=== PATIENT | male | born 1975 | race Caucasian/White ===

== ENCOUNTER → 2021-07-06 11:03 | Outpatient (CLI) | payer OTHER, SELFPAY ==
--- NOTE | 2021-07-06 | DI.MRI.S_ITS ---
PROCEDURE: MR LUMBAR SPINE WO CON INDICATIONS: Radiculopathy, lumbar region TECHNIQUE: Noncontrast sagittal T1 spin echo and T2 fast echo, sagittal STIR, axial T1 and T2 fast spin echo through the lumbar spine. In cases with scoliosis, additional coronal T2 fast spin echo may be performed. COMPARISON: None. FINDINGS: Image quality: Excellent. Alignment and Curvature: There is normal bony alignment. Bone Marrow: Marrow is of normal overall signal. No acute vertebral body compression fractures. Spinal Cord: Conus medullaris terminates at the L1 level. Visualized cord demonstrates normal signal and size. Paraspinous Soft Tissues: No paravertebral masses. T12-L1: Normal appearance. L1-L2: Normal appearance. L2-L3: Normal appearance. L3-L4: Disc height is preserved. Circumferential disc bulge present mild central stenosis. No foraminal stenosis. L4-L5: Moderate disc space narrowing present. Large left subarticular disc protrusion fills the left lateral recess and results in severe central stenosis. There is moderate right and severe left foraminal stenosis. L5-S1: Disc height is preserved. No central or foraminal stenosis. IMPRESSION: 1. Large L3-4 left subarticular disc protrusion fills the left lateral recess results in severe central and left foraminal stenosis. Approved by: Omkar Long M.D. on 07/07/2021 at 9:09
== END ==
PROVIDERS: PCP Family Medicine; Referring Provider Family Medicine; Visit Provider Family Medicine
DX: M51.16 Intervertebral disc disorders with radiculopathy, lumbar region (principal); M48.061 Spinal stenosis, lumbar region without neurogenic claudication
CPT/HCPCS: 72148

== ENCOUNTER → 2021-09-30 10:16 | Outpatient (CLI) | payer OTHER, SELFPAY ==
--- NOTE | 2021-09-30 10:18 | DI.RAD.S_ITS ---
PROCEDURE: XR LUMBAR SPINE MIN 4V INDICATIONS: BACK PAIN TECHNIQUE: 5 views of the lumbar spine were acquired, including bilateral oblique views. COMPARISON: None. FINDINGS: Bones: 5 nonrib-bearing vertebrae are present. There is normal bony alignment. No vertebral body compression fractures. No suspicious bony lesions. Mild degenerative disc changes noted throughout the lumbar spine. Mild L4-L5 and L5-S1 facet hypertrophy. Soft tissues: Overlying bowel gas pattern is normal. No suspicious soft tissue calcifications. Oblique images: No pars defects. IMPRESSION: 1. Multilevel degenerative disc disease. 2. Multilevel facet arthropathy. 3. No fracture. No acute osseous lesion. If symptoms and/or clinical suspicion for pathology persists, evaluation with MRI should be considered for further assessment. Dictated by: Cora Casiano MD, PhD on 09/30/2021 at 14:53 Approved by: Cora Casiano MD, PhD on 09/30/2021 at 14:54
== END ==
PROVIDERS: PCP Family Medicine; Referring Provider Physical Medicine & Rehabilitation; Visit Provider Physical Medicine & Rehabilitation
DX: M51.36 Other intervertebral disc degeneration, lumbar region (principal); M51.37 Other intervertebral disc degeneration, lumbosacral region; M47.816 Spondylosis without myelopathy or radiculopathy, lumbar region; M47.817 Spondylosis without myelopathy or radiculopathy, lumbosacral region; M51.26 Other intervertebral disc displacement, lumbar region; M54.9 Dorsalgia, unspecified
CPT/HCPCS: 72110; 99214

== ENCOUNTER → 2021-10-21 11:43 | Outpatient (CLI) | payer OTHER, SELFPAY ==
[2021-10-21 13:09] LABS: COVID19 -Nasal RAPID Negative (Negative)
== END ==
PROVIDERS: PCP Family Medicine; Visit Provider Physical Medicine & Rehabilitation
DX: Z20.822 Contact with and (suspected) exposure to COVID-19 (principal)
CPT/HCPCS: 87635; C9803

== ENCOUNTER 2021-10-22 07:59 | Outpatient (CLI) | payer OTHER, SELFPAY ==
[2021-10-22] VITALS (8 sets, daily range): BP systolic 134–149; BP diastolic 91–112; PULSE 74–91; RESP 16–27; TEMP 36.4; O2SAT 97–100
--- NOTE | 2021-10-22 08:01 | DI.RAD.S_ITS ---
PROCEDURE: PAIN L/S TRANSFORAM INJECT CHECO COMPARISON: [facility], CR, XR LUMBAR SPINE MIN 4V, 09/30/2021, 10:43. INDICATIONS: SPONDYLOSIS FINDINGS: Fluoroscopic spot filming was performed to verify placement of spinal needles on both sides at the L4-L5 level, as labeled on the films. Appropriate location of the needle tips was confirmed by injection of iodinated contrast. IMPRESSION: Intraprocedural examination demonstrating appropriate positions of the needles. Dictated by: Freddy Zhao M.D. on 10/22/2021 at 10:33 Approved by: Freddy Zhao M.D. on 10/22/2021 at 10:33
[2021-10-22] MEDS: MIDAZOLAM 2 MG/2 ML VIAL IV (09:04)
[2021-10-22] MEDS: BUPIVACAINE 0.25% (PF) VIAL 2 ML INJ (09:09)
[2021-10-22] MEDS: IOPAMIDOL 15 ML VIAL 3 ML INJ (09:09)
[2021-10-22] MEDS: BETAMETHASONE 30 MG/5 ML MDV 12 MG INJ (09:09)
[2021-10-22] MEDS: DEXAMETHASONE 10 MG/ML VIAL 20 MG INJ (09:10)
--- NOTE | 2021-10-22 09:23 | PM.PROC.IR.1 ---
Date/Time/Diagnoses Date of procedure: 10/22/21 Time of procedure: 09:23 Pre-procedure diagnosis: 1. FORAMINAL STENOSIS WITH LE SYMPTOMS Procedure Notes Procedure: 1. FLUOROSCOPICALLY GUIDED CONTRAST CONTROLLED TRANSFORAMINAL EPIDURAL STEROID INJECTION - BILATERAL L4/5 TFESI Indications: Keagan is referred by Dr. Schwartz for treatment of Foraminal Stenosis with bilateral LE Symptoms Physician: Derrick Fu Total Fluoroscopy time (seconds): 16 Total sedation minutes: 17 Complications: none Procedure in detail & Post-procedure care: FINDINGS Foraminal Nerve Root Compression secondary to disc disease and facet hypertrophy DESCRIPTION OF PROCEDURE Following review of allergy and review of potential side effects and complications, including, but not necessarily limited to, infection, allergic reaction, local tissue breakdown, stroke, temporary or permanent nerve injury, paralysis, and possible , the patient indicated that the patient understood and agreed to proceed. An informed consent document was signed by the patient, witnessed by a nurse, and placed in the patient's chart. Additionally, other treatment options including medications, modalities, and physical therapy were reviewed with the patient. After review of previous anaesthesic history and IV conscious sedation the patient was deemed safe to proceed with today?s procedure with IV conscious sedation as ASA class II designation. Safety time-out was performed to confirm patient ID, procedure to be performed and site of procedure. IV sedation was accomplished with a combination of 2mg of Versed was administered by the RN after DO order, titrated to patient comfort during the course of the procedure while the patient remained responsive to all verbal commands In the prone position following sterile prep and drape of the lumbar region, the right L4/5 posterior neuroforamen was identified fluoroscopically. The skin was anesthetized via a 25-gauge 1.5-inch needle with 1% lidocaine solution. At this point, a 25-gauge 3.5-inch spinal needle was atraumatically introduced and advanced under fluoroscopic guidance through the posterior right L4/5 neuroforamen to approximately the anterior aspect of the canal. Depth was confirmed on lateral view. Following negative aspiration, injection of approximately 1.5cc of Isovue 200 under live fluoroscopy in the AP view confirmed excellent flow along the nerve root, into the epidural space without vascular or intrathecal uptake observed Radiological data, including multiple fluoroscopic views of the lumbosacral spine, reveal a spinal needle at the right L4/5 posterior neuroforamen. Subsequent views show flow of contrast material flowing superiorly and inferiorly along the nerve root confirming epidural flow. Subsequently, a test dose of 1.5cc of 1% lidocaine solution was administered and patient was observed for two minutes for signs or symptoms of complications, including abdominal pain, shortness of breath, bilateral upper or lower extremity weakness, nausea and vomiting, prior to steroid injection. At this point, a total of 3cc or 20mg of dexamethasone and 6mg betamethasone was injected without incident. Attention was then refocused to the left L4/5 level where the identical procedure was replicated. The procedure tolerated the procedure well without signs or symptoms of complications prior to transfer to the recovery area continued monitoring without incident. The patient was then transferred to the recovery area where they were observed for an appropriate time after the injection. The patient reported a VAS score of 7 prior to the procedure and a post-procedure VAS of 0. POST OP INSTRUCTIONS The patient was provided a Pain Log to continue to record their response to the target-specific procedure prior to follow-up visit with their referring physician. Additionally, specific post-injection care instructions and a contact number to our office were provided if concerns arise regarding possible complications associated with the procedure are suspected.
== END 2021-10-22 09:40 | disposition home or self-care (01) ==
PROVIDERS: PCP Family Medicine; Referring Provider Physical Medicine & Rehabilitation; Visit Provider Physical Medicine & Rehabilitation
DX: M48.061 Spinal stenosis, lumbar region without neurogenic claudication (principal); M51.16 Intervertebral disc disorders with radiculopathy, lumbar region
CPT/HCPCS: 64483; 99152; J0702; J1100; J2250

== ENCOUNTER 2022-08-14 10:30 | Outpatient (CLI) | payer OTHER, SELFPAY ==
[2022-08-14] VITALS (7 sets, daily range): BP systolic 146–171; BP diastolic 98–110; PULSE 69–83; RESP 12–20; TEMP 36.4; O2SAT 98–99
--- NOTE | 2022-08-14 10:31 | DI.RAD.S_ITS ---
PROCEDURE: PAIN L INTERLAMINAR/CAUDAL INJ INDICATIONS: SPONDYLOSIS COMPARISON: None. FINDINGS: Fluoroscopic spot filming was performed to verify placement of spinal needles at the L4-5 level, as labeled on the films. Appropriate location of the needle tip was confirmed by injection of iodinated contrast. IMPRESSION: Intraprocedural examination demonstrates appropriate needle position. Approved by: Jozef Larios M.D. on 08/14/2022 at 14:30
[2022-08-14] MEDS: MIDAZOLAM 2 MG/2 ML VIAL IV (11:31)
[2022-08-14] MEDS: IOPAMIDOL 15 ML VIAL 3 ML INJ (11:35)
[2022-08-14] MEDS: BUPIVACAINE 0.25% (PF) VIAL 2 ML INJ (11:35)
[2022-08-14] MEDS: BETAMETHASONE 30 MG/5 ML MDV 6 MG INJ (11:36)
[2022-08-14] MEDS: DEXAMETHASONE 10 MG/ML VIAL 20 MG INJ (11:36)
--- NOTE | 2022-08-14 11:46 | P.PCN_ITS ---
Date/Time/Diagnoses Date of procedure: 08/14/22 Time of procedure: 11:46 Pre-procedure diagnosis: 1. HNP WITH RADICULAR FEATURES, 2. MULTILEVEL CENTRAL STENOSIS, Post-procedure diagnosis: same Procedure Notes Procedure: 1. FLUOROSCOPICALLY GUIDED CONTRAST CONTROLLED INTERLAMINAR EPIDURAL STEROID INJECTION -L4/5 Indications: Keagan is referred by Dr. Schwartz for treatment of Bilateral Foraminal Stenosis R>L LE symptoms. Physician: Derrick Fu Total Fluoroscopy time (seconds): 8 Total sedation minutes: 11 Complications: none Procedure in detail & Post-procedure care: FINDINGS Multilevel Central Spinal Stenosis with Nerve Root Compression DESCRIPTION OF PROCEDURE Fluoroscopically guided, contrast-controlled L4/5 translaminar epidural steroid injection. Following review of allergy and review of potential side effects and complications, including, but not necessarily limited to, infection, allergic reaction, local tissue breakdown, temporary as well as permanent nerve injury, paralysis, stroke and possible , the patient indicated that the patient understood and agreed to proceed. An informed consent document was signed by the patient, witnessed by a nurse, and placed in the patient's chart. Additionally, other treatment options including modalities, medications, and physical therapy were reviewed with the patient. After review of previous anaesthesic history and IV conscious sedation the patient was deemed safe to proceed with today?s procedure with IV conscious sedation as ASA class II designation. Safety time-out was performed to confirm patient ID, procedure to be performed and site of procedure. IV sedation was accomplished with a combination of 2mg of Versed was administered by the RN after DO order, titrated to patient comfort during the course of the procedure while the patient remained responsive to all verbal commands In the prone position, following sterile prep and drape of the lumbar region, the L4/5 translaminar space was identified fluoroscopically. The skin was anesthetized via a 25-gauge, 1.5inch needle with 1% lidocaine solution. At this point, a 22-gauge short bevel spinal needle was atraumatically introduced and advanced under fluoroscopic guidance into the region of the L4/5 translaminar space. Depth was confirmed on lateral view. Radiological data, including multiple fluoroscopic views of the lumbar spine, reveal a spinal needle at the L4/5 translaminar space. Lateral views then show placement of the needle in the epidural space. Subsequent views show contrast material flowing superiorly and inferiorly in the epidural space. No vascular or intrathecal uptake is observed. At this point, using loss of resistance technique with saline and air, the epidural space was entered. This was confirmed following negative aspiration with injection of approximately 1.5cc of Isovue 200, showing excellent epidural flow without vascular or intrathecal uptake. At this point, 1cc of 1% lidocaine solution combined with 3cc or 20mg of dexamethasone and 6mg betamethasone was injected without incident. The patient tolerated the procedure well without signs or symptoms of complications prior to transfer to the recovery area continued monitoring without incident. The patient was then transferred to the recovery area where they were observed for an appropriate period of time after the injection. The patient reported a VAS score of 6 prior to the procedure and a post- procedure VAS of 0. POST OP INSTRUCTIONS The patient was provided a Pain Log to continue to record their response to the target-specific procedure prior to follow-up visit with their referring physician. Additionally, specific post-injection care instructions and a contact number to our office were provided if concerns arise regarding possible complications associated with the procedure are suspected.
== END 2022-08-14 12:05 | disposition home or self-care (01) ==
LOC: RAD 10:31
PROVIDERS: PCP Family Medicine; Referring Provider Physical Medicine & Rehabilitation; Visit Provider Physical Medicine & Rehabilitation
DX: M51.16 Intervertebral disc disorders with radiculopathy, lumbar region (principal); M48.061 Spinal stenosis, lumbar region without neurogenic claudication
CPT/HCPCS: 62323; 99152; J0702; J1100; J2250; J3490

== ENCOUNTER 2023-03-17 08:53 | Outpatient (CLI) | payer OTHER, SELFPAY ==
--- NOTE | 2023-03-17 08:54 | DI.RAD.S_ITS ---
PROCEDURE: PAIN L/S FACET INJ/BLK 1ST CHECO INDICATIONS: SPONDYLOSIS COMPARISON: [facility], CR, XR LUMBAR SPINE MIN 4V, 09/30/2021, 10:43. FINDINGS: Fluoroscopic spot filming was performed to verify placement of spinal needles on both sides at the L4, L5, and S1 levels, as labeled on the films. Appropriate location of the needle tips was confirmed by injection of iodinated contrast. IMPRESSION: Intraprocedural examination demonstrating appropriate positions of the needles. Dictated by: Freddy Zhao M.D. on 03/17/2023 at 17:15 Approved by: Freddy Zhao M.D. on 03/17/2023 at 17:15
[2023-03-17 09:00] VITALS: BP 137/95; PULSE 80; RESP 18; TEMP 36.4; O2SAT 98
[2023-03-17] MEDS: BUPIVACAINE 0.5% (PF) 10 ML VIAL 5 ML INJ (09:37)
[2023-03-17] MEDS: LIDOCAINE 1% 20 ML 5 ML INJ (09:37)
[2023-03-17] MEDS: iopamidoL 15 ML VIAL 3 ML INJ (09:37)
[2023-03-17 09:38] VITALS: BP 143/97; PULSE 68; RESP 24; O2SAT 97
[2023-03-17 09:41] VITALS: BP 146/102; PULSE 69; RESP 24; O2SAT 98
[2023-03-17 09:46] VITALS: BP 146/101; PULSE 69; RESP 23; O2SAT 97
[2023-03-17 09:47] VITALS: BP 152/105; PULSE 76; RESP 23; O2SAT 96
[2023-03-17 09:50] VITALS: BP 156/98; PULSE 83; RESP 15; O2SAT 96
--- NOTE | 2023-03-17 09:56 | P.PCN_ITS ---
Date/Time/Diagnoses Date of procedure: 03/17/23 Time of procedure: 09:56 Pre-procedure diagnosis: 1. FACET ARTHROPATHY Post-procedure diagnosis: same Procedure Notes Procedure: 1. BILATERAL- L4, L5 and S1 DIAGNOSTIC MB BLOCKS with LA Anesthetic Indications: Keagan is referred by Dr. Schwartz for treatment of Bilateral Axial LBP. Physician: Derrick Fu Total Fluoroscopy time (seconds): 10 Total sedation minutes: 0 Complications: none Procedure in detail & Post-procedure care: DESCRIPTION OF PROCEDURE Fluoroscopically guided, contrast-controlled bilateral L4, L5 and S1 medial branch blocks with 0.5cc of 0.5% Marcaine. Following review of allergy and review of potential side effects and complications, including, but not necessarily limited to, infection, allergic reaction, local tissue breakdown, nerve injury, paralysis, stroke and possible , the patient indicated that the patient understood and agreed to proceed. An informed consent document was signed by the patient, witnessed by a nurse, and placed in the patient's chart. After review of previous anaesthesic history and IV conscious sedation the patient was deemed safe to proceed with today's procedure with IV conscious sedation as ASA class II designation. Safety time-out was performed to confirm patient ID, procedure to be performed and site of procedure. IV sedation was deemed unnecessary and thus not administered by the RN after DO order, titrated to patient comfort during the course of the procedure while the patient remained responsive to all verbal commands In the prone position, following sterile prep and drape of the lumbar region, the right L4, L5 and S1 anatomical location of the medial branch of the dorsal ramus was identified fluoroscopically. Subsequently an anesthetic skin wheal using 1% lidocaine solution was initiated at each of the anatomical spots. Subsequently then a 22-gauge 3.5-inch spinal needle was atraumatically introduced and advanced under fluoroscopic guidance at each of the corresponding sites at the right L4, L5 and S1 MB. After negative aspiration, 0.2cc of Isovue 200 was injected, confirming placement without vascular or intrathecal uptake. Subsequently then 0.5cc of 0.5% Marcaine solution was injected at each of the corresponding sites at the right L4, L5 and S1 medial branch locations. The identical procedure was replicated on the left. The patient tolerated the procedure well without signs or symptoms of complications prior to transfer to the recovery area continued monitoring without incident. Post-procedure, the patient was monitored initiating provocative activities to measure the amount of relief from block of the facetogenic pain. The patient reported a VAS of 7 prior to the procedure and a post-procedure VAS of 1. It has been a pleasure to assist in the diagnostic and therapeutic care of your patient. POST OP INSTRUCTIONS The patient was provided with a Pain Log to complete over the next several hours and subsequent days prior to the patient's follow up with the ordering physician. If the patient has hospice consultant relief to the solution applied, then they may be a candidate for medial branch rhizotomy. The patient is aware, was provided, once again, with a Pain Log and will follow up with the referring physician for review and clinical correlation
== END 2023-03-17 10:05 | disposition home or self-care (01) ==
LOC: RAD 08:54
PROVIDERS: PCP Family Medicine; Referring Provider Physical Medicine & Rehabilitation; Visit Provider Physical Medicine & Rehabilitation
DX: M47.816 Spondylosis without myelopathy or radiculopathy, lumbar region (principal)
CPT/HCPCS: 64493; 64494; J2250